=== PATIENT | male | born 1980 | race Caucasian/White ===

== ENCOUNTER 2025-05-28 01:28 | Emergency (ER) | payer BC, SELFPAY ==
[2025-05-28 01:31] VITALS: BP 156/88
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
[2025-05-28 03:05] VITALS: BP 148/72
== END 2025-05-28 03:07 | disposition home or self-care (01) ==
LOC: EMR 01:28
PROVIDERS: EMERGENCY PHYSICIAN Student in an Organized Health Care Education/Training Program; FAMILY PHYSICIAN Family Medicine
DX: S51.012A Laceration without foreign body of left elbow, initial encounter (principal); I10 Essential (primary) hypertension; S00.81XA Abrasion of other part of head, initial encounter; Y04.0XXA Assault by unarmed brawl or fight, initial encounter
CPT/HCPCS: 99282; 12001